=== PATIENT | female | born 1960 | race Caucasian/White ===

== ENCOUNTER 2019-01-17 10:29 | Observation (INO) ==
[2019-01-17 11:30] LABS: Methemoglobin % 0.3 % (0.41-1.15)
[2019-01-17] MEDS ORDERED: ALBUTEROL SULFATE/IPRATROPIUM 3 ML NEBU IH ONE (11:49)
[2019-01-17] MEDS ORDERED: DEXAMETHASONE SODIUM PHOSP/PF 10 MG/ML VIAL IM ONE (12:07)
[2019-01-17] MEDS ORDERED: MORPHINE SULFATE 2 MG/ML DISP.SYRIN IV ONE (12:08)
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
[2019-01-17] MEDS ORDERED: ALBUTEROL SULFATE/IPRATROPIUM 3 ML NEBU IH SCH ×2 (13:45→19:00)
[2019-01-17] MEDS ORDERED: ALBUTEROL SULFATE 2.5 MG/0.5 ML VIAL.NEB IH PRN (14:10)
[2019-01-17] MEDS: traMADol HCL 50 MG TABLET PO PRN ×2 (14:16→19:41)
[2019-01-17] MEDS ORDERED: ONDANSETRON 4 MG TAB.RAPDIS PO PRN (15:53)
[2019-01-17] MEDS: ALBUTEROL SULFATE/IPRATROPIUM 3 ML NEBU IH SCH ×3 (16:54→22:09)
[2019-01-17] MEDS ORDERED: GABAPENTIN 600 MG TABLET PO SCH (21:00)
[2019-01-17] MEDS ORDERED: MONTELUKAST SODIUM 10 MG TABLET PO SCH (21:00)
[2019-01-18] MEDS: ALBUTEROL SULFATE/IPRATROPIUM 3 ML NEBU IH SCH ×2 (02:07→06:07)
[2019-01-18] MEDS ORDERED: PANTOPRAZOLE SODIUM 20 MG TABLET.DR PO SCH (07:00)
[2019-01-18] MEDS: traMADol HCL 50 MG TABLET PO PRN ×2 (07:08→11:46)
[2019-01-18] MEDS ORDERED: ALBUTEROL SULFATE/IPRATROPIUM 3 ML NEBU IH PRN (07:39)
[2019-01-18] MEDS ORDERED: DEXAMETHASONE SODIUM PHOSPHATE 4 MG/ML VIAL IV SCH (09:00)
[2019-01-18] MEDS ORDERED: LORATADINE 10 MG TABLET PO SCH (09:00)
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
[2019-01-18 11:38] VITALS: BP 147/80
== END 2019-01-18 11:45 | disposition home or self-care (01) ==
LOC: MS 10:29 → ER 10:29 → MS 12:44
PROVIDERS: ADMIT Family Medicine; ATTEND Family Medicine
DX: S82.891A Other fracture of right lower leg, initial encounter for closed fracture; J45.901 Unspecified asthma with (acute) exacerbation; J70.5 Respiratory conditions due to smoke inhalation
CPT/HCPCS: 36415; 71020; 71046; 73610; 73630; 82375; 93005; 94640; 94664; 96372; 96374; 96375; 99285; G0378